=== PATIENT | female | born 1955 | race Caucasian/White ===

== ENCOUNTER 2016-10-27 11:21 | Day surgery (SDC) | payer OTHER ==
[2016-10-20 14:47] VITALS: BMI 33.8
--- NOTE | 2016-10-27 07:42 | P.GSHP ---
History of Present Illness H&P Date: 10/26/16 CHIEF COMPLAINT: Ventral hernia. HISTORY OF PRESENT ILLNESS: The patient is a 61-year-old female who presents with a history of swelling along the upper abdomen. Findings were consistent with ventral hernia initial presentation. Now she presents for further evaluation and management. PAST MEDICAL HISTORY: Please see list. PAST SURGICAL HISTORY: Please see list. MEDICATIONS: Please see list. ALLERGIES: Please see list. SOCIAL HISTORY: No illicit drug use FAMILY HISTORY: No reports of Crohn disease or ulcerative colitis. REVIEW OF ORGAN SYSTEMS: CONSTITUTIONAL: No reports of fevers or chills. GI: Denies any blood in stools or constipation. PHYSICAL EXAM: VITAL SIGNS: Stable GENERAL: Well-developed pleasant female in no acute distress. HEENT: No scleral icterus. Extraocular movements grossly intact. Moist buccal mucosa. NECK: Supple without lymphadenopathy. CHEST: Unlabored respirations. Equal bilateral excursions. CARDIOVASCULAR: Regular rate and rhythm. Distal 2+ pulses. ABDOMEN: Soft, nondistended. Palpable defect of the epigastrium. MUSCULOSKELETAL: No clubbing, cyanosis, or edema. ASSESSMENT: 1. Ventral hernia. PLAN: 1. Recommend proceeding with a diagnostic laparoscopy with the ventral hernia repair with mesh. 2. Benefits and risks of surgical intervention was discussed including possibility of open technique. 3. May need overnight observation. 4. DVT prophylaxis. 5. Antibiotic prophylaxis. Past Medical History Past Medical History: GERD/Reflux Additional Past Medical History / Comment(s): hernia History of Any Multi-Drug Resistant Organisms: None Reported Additional Past Surgical History / Comment(s): LASER SX ON VOCAL CORDS. EGD Past Anesthesia/Blood Transfusion Reactions: No Reported Reaction Smoking Status: Former smoker - Past Family History Brother(s) Family Medical History: Cancer Medications and Allergies Home Medications Medication Instructions Recorded Confirmed Type Ibuprofen [Motrin] 800 mg PO Q6H PRN 10/20/16 10/20/16 History Omeprazole 20 mg PO DAILY 10/20/16 10/20/16 History Allergies Allergy/AdvReac Type Severity Reaction Status Date / Time bee venom protein (honey bee) Allergy Anaphylaxis Verified 10/20/16 14:42
[~2016-10-27 11:21] MED LIST: ACETAMINOPHEN IV (For NPO) 1,000 MG in EMPTY BAG 1 BAG IVPB ONE; DEXAMETHASONE SOD PHOSPHATE 10 MG/ML 1 ML VIAL IV ONE; HEPARIN SODIUM,PORCINE 5,000 UNIT/ML 1 ML VIAL SQ ONE; LACTATED RINGERS 1,000 ML IV SCH; ONDANSETRON 4 MG/2 ML VIAL IVP ONE; ceFAZolin 2 GM in SODIUM CHLORIDE 0.9% 100 ML IVPB ONE
[2016-10-27] MEDS ORDERED: LIDOCAINE 1% 20 ML VIAL (10MG/ML) FOR IV START INTRADERMA ONE (12:23)
[2016-10-27] MEDS ORDERED: MIDAZOLAM 2 MG/2 ML VIAL ONE (13:56)
[2016-10-27] MEDS ORDERED: GLYCOPYRROLATE 0.2 MG/ML 2 ML VIAL ONE (13:56)
[2016-10-27] MEDS ORDERED: ROCURONIUM BROMIDE 10 MG/ML 10 ML VIAL IV ONE (13:56)
[2016-10-27] MEDS ORDERED: NEOSTIGMINE 1 MG/ML 10 ML VIAL ONE (13:56)
[2016-10-27] MEDS ORDERED: PROPOFOL 10 MG/ML 20 ML VIAL IV ONE (13:56)
[2016-10-27] MEDS ORDERED: fentaNYL (PF) 50 MCG/ML 2 ML AMP ONE (13:56)
[2016-10-27] MEDS ORDERED: LIDOCAINE 1% INJ 10MG/ML (20 ML MDV) ONE (13:56)
[2016-10-27] MEDS ORDERED: SUCCINYLCHOLINE CHLORIDE 100 MG/5 ML SYR IV ONE (13:56)
[2016-10-27] MEDS ORDERED: LACTATED RINGERS 1,000 ML IV ONE ×2 (14:00→14:44)
[2016-10-27] MEDS ORDERED: BUPIVACAINE-EPI 0.5%-1:200,000 10 ML VIAL SQ ONE ×2 (14:19→14:21)
--- NOTE | 2016-10-27 14:47 | P.OP ---
Date of Procedure: 10/27/16 Description of Procedure: SURGEON: TAB BARKSDALE MD PREOPERATIVE DIAGNOSIS: 1. Ventral hernia, initial. 2. History of tobacco use. 3. Gastroesophageal reflux disease. 4. Obesity, BMI 33.8. POSTOPERATIVE DIAGNOSIS: 1. Ventral hernia, initial. 2. History of tobacco use. 3. Gastroesophageal reflux disease. 4. Obesity, BMI 33.8. 5. Incarcerated umbilical ventral hernia, 2 cm. OPERATION: 1. Laparoscopic reduction and repair of incarcerated initial ventral hernia with Bard Ventralight ST mesh 11.4 cm. ANESTHESIA: General with local anesthetic. ESTIMATED BLOOD LOSS: 2 mL SPECIMENS REMOVED: None. COMPLICATIONS: None. INDICATIONS: The patient is a 61-year-old female who presents with symptomatic bulge along the umbilicus including pain. Clinical exam is consistent with a ventral hernia. She was encouraged to discontinue tobacco use asked to optimize her perioperative and postsurgical care. Benefits and risks were described including placement of mesh. Informed consent was obtained. DESCRIPTION: Patient was brought into the operating room, laid in supine position. After general induction, abdomen was prepped and draped in standard sterile fashion, including placement of Ioban draping. Prior to incision, a timeout protocol was performed with the surgical team, confirming the patient's name, procedure to be performed, including preoperative medications, for which she received IV antibiotics. A 5 mm transverse incision was made along the left upper abdomen. A 0-degree 5 mm laparoscopic trocar entry was entered into peritoneal cavity. Diagnostic laparoscopy demonstrated no entry to bowel, viscera or mesentery. No bilateral inguinal hernias were found. The liver surface was unremarkable. The small bowel was unremarkable. Two other 5 mm trocars were placed along the left lateral abdominal wall under direct visualization. Attention was then brought to the abdominal wall, whereby along the umbilicus a defect of approximately 2 cm was encountered with incarcerated fat. The abdominal fat was cleaned from the abdominal wall for application of a Ventralight mesh. The 5 mm port along the left upper quadrant was exchanged for a 10 mm port. A peritoneal block of local anesthetic was placed along the epigastrium and along the hernia to minimize postoperative pain. Next, the Ventralight ST mesh was placed into the abdominal cavity after placing a loop of 1-0 Prolene at the epicenter. A Dangelo-Lee was used to draw the loop of the central portion of the mesh through the skin. On the periphery, Sorbafix was placed including along the body of the mesh. All instruments and pneumoperitoneum were removed from the abdominal cavity. Incisions were reapproximated using 4-0 Monocryl in an interrupted fashion. Dermabond was applied to the skin. A sterile cotton ball including Tegaderm was placed over the umbilicus. Once dried, an abdominal binder was placed. At the end of the procedure, needle, sponge and instrument count was verified correct by the surgical attendant. The patient had tolerated the procedure well and was awakened from anesthesia without sequelae. FINDINGS: 1. A 2-cm incarcerated ventral hernia at the epigastrium. Plan - Discharge Summary New Discharge Prescriptions: No Action Omeprazole 20 mg PO DAILY Ibuprofen [Motrin] 800 mg PO Q6H PRN PRN Reason: Pain Discharge Medication List Ibuprofen [Motrin] 800 mg PO Q6H PRN 10/20/16 [History] Omeprazole 20 mg PO DAILY 10/20/16 [History]
[2016-10-27] MEDS ORDERED: HYDROcodone/APAP 5-325MG 1 EACH TAB PO PRN (14:51)
[2016-10-27] MEDS ORDERED: NALOXONE 0.4 MG/ML 1 ML VIAL IV PRN (14:51)
[2016-10-27] MEDS: HYDROmorphone 1 MG/ML 1 ML SYRINGE IVP PRN ×3 (14:55→15:46)
[2016-10-27 15:04] VITALS: RESP 16; TEMP 96.8
[2016-10-27] MEDS ORDERED: ONDANSETRON 4 MG/2 ML VIAL IVP ONE (15:46)
[2016-10-27] MEDS ORDERED: HYDROcodone/APAP 5-325MG 1 EACH TAB PO ONE (16:30)
[2016-10-27 17:22] VITALS: BP 109/67; PULSE 83
== END 2016-10-27 17:57 | disposition home or self-care (01) ==
LOC: OR 11:21
PROVIDERS: ATTEND Surgery Plastic and Reconstructive Surgery
DX: K42.0 Umbilical hernia with obstruction, without gangrene (principal); K21.9 Gastro-esophageal reflux disease without esophagitis; E66.9 Obesity, unspecified; Z68.33 Body mass index [BMI] 33.0-33.9, adult; Z87.891 Personal history of nicotine dependence; Z79.899 Other long term (current) drug therapy; Z91.030 Bee allergy status
CPT/HCPCS: 88302; 49653; C1781 ×2; J2250; J1644; J1100; J2710; J0690; J2405; J2001; J3010; J1170; J0131; J0330; J2704

== ENCOUNTER 2017-08-07 09:26 | Inpatient (IN) | payer OTHER ==
[2017-07-28 13:38] VITALS: BMI 34.0
--- NOTE | 2017-08-07 07:33 | P.GSHP ---
History of Present Illness H&P Date: 08/07/17 CHIEF COMPLAINT: Paraesophageal hiatal hernia with gastroesophageal reflux disease. HISTORY OF PRESENT ILLNESS: The patient is a 62-year-old female who presents with paraesophageal hiatal hernia. She has completed an esophageal manometry including upper endoscopy workup. Now she presents for surgical intervention. PAST MEDICAL HISTORY: Please see list. PAST SURGICAL HISTORY: Please see list. MEDICATIONS: Please see list. ALLERGIES: Please see list. SOCIAL HISTORY: No illicit drug use FAMILY HISTORY: No reports of Crohn disease or ulcerative colitis. REVIEW OF ORGAN SYSTEMS: CONSTITUTIONAL: No reports of fevers or chills. GI: Denies any blood in stools or constipation. PHYSICAL EXAM: VITAL SIGNS: Stable GENERAL: Well-developed pleasant and in no acute distress. HEENT: No scleral icterus. Extraocular movements grossly intact. Moist buccal mucosa. NECK: Supple without lymphadenopathy. CHEST: Unlabored respirations. Equal bilateral excursions. CARDIOVASCULAR: Regular rate and rhythm. Distal 2+ pulses. ABDOMEN: Soft, nondistended. No peritoneal signs. MUSCULOSKELETAL: No clubbing, cyanosis, or edema. SKIN: Well-perfused. Good skin turgor. MANOMETRY: Shows no evidence of achalasia or scleroderma. ASSESSMENT: 1. Diaphragmatic paraesophageal hiatal hernia with severe gastroesophageal reflux disease. PLAN: 1. Recommend proceeding with a robotic paraesophageal hiatal hernia with possible mesh. 2. Benefits and risks of surgical intervention was discussed including possibility of open technique. 3. Inpatient hospitalization recommended of 2 nights 4. DVT prophylaxis. 5. Antibiotic prophylaxis. 6. She has also completed a very low caloric high-protein diet to address underlying hepatomegaly. Past Medical History Past Medical History: GERD/Reflux, Osteoarthritis (OA) Additional Past Medical History / Comment(s): hiatal hernia, History of Any Multi-Drug Resistant Organisms: None Reported Past Surgical History: Breast Surgery, Hernia Repair Additional Past Surgical History / Comment(s): umbilical hernia repair, laser surgery to remove polyps from throat, rt breast biopsy, Past Anesthesia/Blood Transfusion Reactions: No Reported Reaction Smoking Status: Former smoker - Past Family History Brother(s) Family Medical History: Cancer Medications and Allergies Home Medications Medication Instructions Recorded Confirmed Type Meloxicam 7.5 mg PO DAILY 07/28/17 07/28/17 History Omeprazole [PriLOSEC] 40 mg PO QAM 07/28/17 07/28/17 History Ranitidine HCl [Zantac] 150 mg PO HS 07/28/17 07/28/17 History Allergies Allergy/AdvReac Type Severity Reaction Status Date / Time bee venom protein (honey bee) Allergy Anaphylaxis Verified 07/28/17 13:26
[~2017-08-07 09:26] MED LIST changes: +HYDROmorphone 0.5 MG/0.5 ML SYRINGE IVP PRN; +SCOPOLAMINE 1.5MG/72HR PATCH TRANSDERM STA; -ceFAZolin 2 GM in SODIUM CHLORIDE 0.9% 100 ML IVPB ONE; +ceFAZolin IN SWFI 2 GM/20 ML SYRINGE IVP ONE
[2017-08-07] MEDS ORDERED: LIDOCAINE 1% 20 ML VIAL (10MG/ML) FOR IV START INTRADERMA ONE (10:08)
[2017-08-07 10:32] LABS: Basophils % (A) 0 %; Eosinophils # (A) 0.1 k/uL (0-0.7); Eosinophils % (A) 2 %; HCT 38.8 % (34.0-46.0); HGB 12.8 gm/dL (11.4-16.0); Lymphocytes # (A) 2.5 k/uL (1.0-4.8); Lymphocytes % (A) 37 %; MCH 28.7 pg (25.0-35.0); MCHC 33.1 g/dL (31.0-37.0); MCV 86.7 fL (80.0-100.0); Mean Platelet Volume 7.3; Monocytes # (A) 0.3 k/uL (0-1.0); Monocytes % (A) 5 %; Neutrophils # (A) 3.7 k/uL (1.3-7.7); Neutrophils % (A) 55 %; Platelet Count 262 k/uL (150-450); RBC 4.47 m/uL (3.80-5.40); RDW 13.6 % (11.5-15.5); WBC 6.8 k/uL (3.8-10.6)
[2017-08-07] MEDS ORDERED: LABETALOL 5 MG/ML VIAL MDV ONE (10:49)
[2017-08-07] MEDS ORDERED: SUCCINYLCHOLINE CHLORIDE 100 MG/5 ML SYR IV ONE (10:49)
[2017-08-07] MEDS ORDERED: ROCURONIUM BROMIDE 10 MG/ML 10 ML VIAL IV ONE (10:49)
[2017-08-07] MEDS ORDERED: GLYCOPYRROLATE 0.2 MG/ML 2 ML VIAL ONE (10:49)
[2017-08-07] MEDS ORDERED: fentaNYL (PF) 50 MCG/ML 2 ML AMP ONE (10:49)
[2017-08-07] MEDS ORDERED: PROPOFOL 10 MG/ML 20 ML VIAL IV ONE (10:49)
[2017-08-07] MEDS ORDERED: MIDAZOLAM 2 MG/2 ML VIAL ONE (10:49)
[2017-08-07] MEDS ORDERED: LIDOCAINE 1% INJ 10MG/ML (20 ML MDV) ONE (10:49)
[2017-08-07] MEDS ORDERED: NEOSTIGMINE 1 MG/ML 10 ML VIAL ONE (10:49)
[2017-08-07] MEDS ORDERED: BUPIVACAINE (PF) 0.5% 30 ML VIAL SQ ONE (11:15)
[2017-08-07] MEDS ORDERED: ONDANSETRON 4 MG/2 ML VIAL IVP PRN (13:28)
[2017-08-07] MEDS ORDERED: NALOXONE 0.4 MG/ML 1 ML VIAL IV PRN (13:28)
[2017-08-07] MEDS ORDERED: HYDROmorphone 0.5 MG/0.5 ML SYRINGE IVP PRN (13:31)
--- NOTE | 2017-08-07 13:37 | P.PCN ---
Date of Procedure: 08/07/17 Preoperative Diagnosis: Diaphragmatic hiatal hernia, gastroesophageal reflux disease, epigastric abdominal pain, morbid obesity due to excess calories Postoperative Diagnosis: Same, left posterior lobe mass 4 x 3 cm against hiatus Procedure(s) Performed: 1. Robotic-assisted paraesophageal hiatal hernia incarcerated 3 x 2 cm without mesh 2. Excision of left posterior liver mass 4 x 3 cm 3. Intra-op EGD Anesthesia: GETA, local Surgeon: Lovely Richards Estimated Blood Loss (ml): 10 Pathology: other (Left posterior hepatic lobe mass) Condition: stable Disposition: floor Operative Findings: 1. Nodular cystic 4 x 3 cm left posterior liver mass completely excised causing compression against diaphragmatic hiatus requiring excision to perform patient's procedure. 2. Hiatal defect incarcerated 3 x 2 cm 3. Hill grade 1 lower esophageal valve after completion of procedure 4. Console time 82 minutes
[2017-08-07] MEDS ORDERED: LACTATED RINGERS 1,000 ML IV ONE ×2 (14:11)
[2017-08-07] MEDS: D5-0.45% NACL WITH KCL 20MEQ/L 1,000 ML IV SCH ×2 (15:11→16:33)
[2017-08-07] MEDS: METOCLOPRAMIDE 5 MG/ML 2 ML VIAL IVP SCH ×2 (15:11→20:40)
[2017-08-07 15:49] LABS: Anion Gap 9 mmol/L; Blood Urea Nitrogen 15 mg/dL (7-17); Calcium 9.3 mg/dL (8.4-10.2); Carbon Dioxide 27 mmol/L (22-30); Chloride 106 mmol/L (98-107); Glucose 98 mg/dL (74-99); Potassium 4.7 mmol/L (3.5-5.1); Sodium 142 mmol/L (137-145)
--- NOTE | 2017-08-07 16:10 | FL ---
EXAMINATION TYPE: FL esophagus cervic/pharynx DATE OF EXAM: 08/07/2017 LIMITED UGI-ESOPHAGRAM: CLINICAL HISTORY: History of GERD and hernia with Hany fundoplication surgery earlier today. TECHNIQUE: Limited esophagram is performed utilizing 50 oz of Isovue-370. A total of 20 seconds of f luoroscopic time was utilized during procedure. Spot images are saved during procedure. FINDINGS: The patient swallowed contrast without difficulty or delay. Esophageal peristalsis and mo tility are within normal limits. There is good flow of contrast along the diaphragmatic hiatus into t he stomach, there is no evidence of contrast extravasation to suggest leak. No persistent hiatal armond ia is seen. Patient remains asymptomatic. IMPRESSION: No evidence of leak or significant obstruction status post Hany fundoplication surgery earlier today.
[2017-08-07] MEDS: ERYTHROMYCIN 5 MG/GM OPHTH OINT 3.5 GM TUBE RIGHT EYE SCH ×2 (16:33→23:49)
[2017-08-07] MEDS: KETOROLAC 30 MG/ML 1 ML VIAL IVP SCH ×2 (16:33→21:42)
--- NOTE | 2017-08-07 16:54 | CONS ---
CONSULTATION DATE OF SERVICE: 08/07/2017 TIME: 4:11 HISTORY: This is a 62-year-old female who presented to the hospital with a hiatal hernia. She has recently undergone hiatal hernia repair and since the surgery complained of severe pain in her right eye. She also complains of blurred vision in the eye. EXAMINATION: Visual acuity measured 2400 OD. The pupils were equal and reactive to light. On penlight exam, the lids were normal. The conjunctivae exhibited 2+ injection on the right side. There was an obvious epithelial corneal defect on the right side as well. The anterior chambers were well formed. Lenses were well centered. IMPRESSION: Corneal abrasion. Treatment will consist of erythromycin ointment to the cornea along with a pressure patch overnight to help alleviate symptoms. In addition, the pressure patch should be removed tomorrow morning and she should remain on erythromycin ointment one-quarter inch to the affected eye q.i.d. until symptoms have resolved. I would be happy to follow up with her upon discharge from the hospital. MMERICK / NEETU: [id number] /
[2017-08-07] MEDS ORDERED: KETOROLAC 30 MG/ML 1 ML VIAL IM SCH (18:00)
[2017-08-07] MEDS: ceFAZolin IN SWFI 2 GM/20 ML SYRINGE IVP SCH (18:04)
[2017-08-07 19:55] VITALS: RESP 18
[2017-08-08] MEDS: METOCLOPRAMIDE 5 MG/ML 2 ML VIAL IVP SCH ×2 (02:51→08:01)
[2017-08-08] MEDS: ceFAZolin IN SWFI 2 GM/20 ML SYRINGE IVP SCH (02:52)
[2017-08-08] MEDS: KETOROLAC 30 MG/ML 1 ML VIAL IVP SCH (06:11)
[2017-08-08] MEDS: D5-0.45% NACL WITH KCL 20MEQ/L 1,000 ML IV SCH (06:12)
[2017-08-08 07:58] VITALS: BP 135/80; PULSE 72; TEMP 97.8
[2017-08-08] MEDS ORDERED: ENOXAPARIN 40 MG/0.4 ML SYRINGE SQ SCH (09:00)
[2017-08-08] MEDS ORDERED: PANTOPRAZOLE 40 MG/10 ML VIAL IV SCH (09:00)
--- NOTE | 2017-08-12 07:18 | CDI ---
Documentation Clarification Form Date: 08/12/2017 12:00:00 AM From: ROXANNA Al Phone: If you have question, contact Alee Rosario Turn Machine Operator at M-F 8:30 am to 6pm Admit Date: 08/07/2017 9:26:00 AM Patient Name: Onofre Marte Visit Number: [id number] Discharge Date: 08/08/17 ATTENTION: The Clinical Documentation Specialists (CDI) and [facility] Coding Staff appreciate your assistance in clarifying documentation. Please respond to the clarification below the line at the bottom and electronically sign. The CDI & [facility] Coding staff will review the response and follow-up if needed. Please note: Queries are made part of the Legal Health Record. If you have any questions, please contact the author of this message via ITS. Dr. Lovely Richards Postoperative findings indicate a left posterior liver lobe mass 4x3 cm was found against the hiatus. The pathology report is now available for viewing and the final diagnosis of the pathology report states: Hemagnioma In your professional opinion, do you agree with the pathology report specifying the liver mass as hemangioma? Yes No Other (please specify) Unable to determine Thank you for your time. Mass described per final pathology of pathologist! LEEROY 08/13/17 @ 15:39 MTDD
--- NOTE | 2017-08-13 14:41 | P.OP ---
Date of Procedure: 08/07/17 Description of Procedure: Date of Procedure: 08/07/17 DESCRIPTION OF PROCEDURE(S): SURGEON: TAB BARKSDALE MD PREOPERATIVE DIAGNOSES: 1. Morbid obesity due to excess calories. 2. Body mass index of 34.0 3. Gastroesophageal reflux disease. 4. Paraesophageal hiatal hernia, midline. 5. Osteoarthritis bilateral knees 6. Epigastric abdominal pain POSTOPERATIVE DIAGNOSES: 1. Morbid obesity due to excess calories. 2. Body mass index of 34.0 3. Gastroesophageal reflux disease. 4. Paraesophageal hiatal hernia, midline. 5. Osteoarthritis bilateral knees 6. Hepatic tumor involving left posterior lobe mass/caudate lobe 4 x 3 cm against hiatus, segment I OPERATION: 1. Robotic-assisted da Soren Xi laparoscopic reduction and repair of incarcerated paraesophageal hiatal hernia 3 x 2 cm without mesh 2. Resection of left posterior lobe protuding liver mass 4 x 3 cm 3. Intraoperative esophagogastroduodenoscopy ANESTHESIA: General with local anesthetic. ESTIMATED BLOOD LOSS: 10 mL SPECIMENS REMOVED: (Left posterior hepatic lobe mass) COMPLICATIONS: None. FINDINGS: 1. Nodular cystic 4 x 3 cm left posterior liver mass completely excised causing compression against diaphragmatic hiatus requiring excision to perform patient's procedure. 2. Hiatal defect incarcerated 3 x 2 cm 3. Hill grade 1 lower esophageal valve after completion of procedure 4. Console time 82 minutes INDICATIONS: The patient is a 62-year-old female who presents with Epigastric abdominal pain, gastroesophageal reflux disease poorly controlled despite medications, and a symptomatic diaphragmatic hiatal hernia. Preoperative workup including upper endoscopy demonstrated a Hill grade 4 lower esophageal valve. She completed an esophageal manometry. Given the severity of her symptoms, particularly of her symptomatic diaphragmatic hiatal hernia, she had elected for surgical intervention. Benefits and risks including bleeding, infection, recurrence, dysphagia, injury to the lung, need for further surgery was described at length. Informed consent was obtained. DESCRIPTION: The patient was brought into the operating room and placed in supine position. Preoperatively she had received Lovenox subcutaneously for DVT prophylaxis. After general induction, the abdomen was prepped and draped in standard sterile fashion. The patient had previously voided prior to coming to the operating room. Ioban draping was placed along the abdomen. A timeout protocol was confirmed with the surgical team, for which the patient's name, procedure to be performed including DVT prophylaxis with bilateral SCDs, and preoperative antibiotics were also confirmed. A robotic da Soren Xi system was prepped and primed. At 15 cm from the xiphoid to just below the umbilicus, proposed port sites were marked with indelible marker along the left axillary line, left mid-clavicular line with each ports were marked 10 cm from each other. A 5 mm 0 degrees laparoscopic trocar entry was performed along the left upper quadrant. The abdomen was insufflated to 15 mmHg pressure she tolerated well. Diagnostic laparoscopy demonstrated no injury to bowel, viscera, or mesentery. The liver surface was unremarkable. No injury had occurred to the small bowel or viscera. Along the hiatus, a protruding nodular cystic liver mass 4 x 3 cm was found obscuring the anterior hiatus and causing compression along the GE junction. To proceed with the case, the mass was excised in toto using electro- Bovie cautery and scissor with excellent hemostasis obtained. Next, one 8 mm robotic port was placed along the right upper abdomen. An 8-mm port was were placed along the left mid abdomen. The camera 12-mm port extended length was maintained along the epigastrium via the hernia defect. Another 8 mm port was placed along the left upper abdominal wall after exchanging the 5 mm port. Please note that the ports were placed at least 20 cm away from the target anatomy. Care was taken to check that each robotic arm were safely away from collision with the bed or the patient. At the epigastrium, a median sized Raisa liver retractor was placed under direct visualization with the Iron Finishing Supervisor placed under the right shoulder of the patient. The patient was repositioned in reverse Trendelenburg position and 14 after lowering the bed. The robot was docked above the head of the patient. Using a grasper for arm 3, a grasper for arm 2, including hook cautery for arm 1 , the robotic system was docked and primed as described. Instruments were interchanged by the assistant infant toddler teacher . I had sat at the console. The gastrohepatic ligament was cleaved using a vessel sealer. Next, the phrenoesophageal ligament was mobilized and the distal esophagus was mobilized circumferentially without injury to the bilateral vagi nerves. The left and right crura was identified. A midline hiatal hernia and sac was found incarcerated into the mediastinum. Mobilization of the distal to mid esophagus into the mediastinum was performed without injury to the vagotomy nerves. Circumferentially, the hernia sac was excised and brought into the peritoneal cavity. Care was taken to avoid any gastrotomy to the incarcerated upper pole of the stomach. The measured defect was consistent with at least 4 cm axial length and 3 cm width. After extensive dissection, the distal esophagus of at least 3 cm was brought into the abdominal cavity. Once the hiatus and crura was dissected, 2-0 VLOC suture was placed initially with a [id number]-hv-emadu suture to reapproximate the diaphragmatic hiatus posteriorly. Additional sutures using 2-0 Surgidac was used as a [id number] as well as interrupted simple sutures to completely close the hiatus along the posterior aspect. The robot was undocked from the patient. I went to the head of the bed to perform intraoperative esophagogastroduodenoscopy. An Olympus gastroscope was passed through posterior oropharynx, where the GE junction was found distal to the diaphragmatic hiatus. The intra-abdominal esophageal length obtained during the case was over 2 cm. The stomach was entered. Retroflexion of the scope confirmed a Hill grade 1 lower esophageal valve. The stomach had been desufflated. No evidence of leaks were found either of the mucosal defects of the esophagus or stomach. This concluded the endoscopic portion of the case. I re-scrubbed into the case. All instruments and pneumoperitoneum were evacuated from the abdominal cavity. Incisions were reapproximated using 4-0 Monocryl in an interrupted subcuticular fashion. Liquid glue was applied to the skin. Local anesthetic was infiltrated in all wounds for postop analgesia. Multiple intra-abdominal films were obtained. At the end of the procedure, needle, sponge, and instrument count was verified correct by the surgical lead. The patient had tolerated the procedure well and was taken to the postanesthesia unit in stable condition. Intraoperative films were reviewed with the patient's family who was pleased with the level of care.
--- NOTE | 2017-08-13 15:58 | P.DS ---
Providers Date of admission: 08/07/17 09:26 Expected date of discharge: 08/08/17 Attending physician: Lovely iRchards Consults: 08/07/17 13:55 Consult Physician Urgent Consulting Provider: Franklyn Saucedo Consult Reason/Comments: Corneal abrasion Do you want consulting provider notified?: Already Contacted Primary care physician: Stated None Hospital Course: POSTOPERATIVE DIAGNOSES: 1. Morbid obesity due to excess calories. 2. Body mass index of 34.0 3. Gastroesophageal reflux disease. 4. Paraesophageal hiatal hernia, midline. 5. Osteoarthritis bilateral knees 6. Hepatic tumor involving left posterior lobe mass/caudate lobe 4 x 3 cm against hiatus, segment I COURSE: The patient is a 62-year-old female who presents with Epigastric abdominal pain, gastroesophageal reflux disease poorly controlled despite medications, and a symptomatic diaphragmatic hiatal hernia. Preoperative workup including upper endoscopy demonstrated a Hill grade 4 lower esophageal valve. She completed an esophageal manometry. Postprocedure she was tolerating diet. Her pain was well-controlled. Per request of anesthesia, ophthalmology was consulted for corneal abrasion. Prior to discharge she was hemodynamically stable. Pertinent Studies: Esophagram without leak or obstruction Procedures: OPERATION: 1. Robotic-assisted da Soren Xi laparoscopic reduction and repair of incarcerated paraesophageal hiatal hernia 3 x 2 cm without mesh 2. Resection of left posterior lobe protuding liver mass 4 x 3 cm 3. Intraoperative esophagogastroduodenoscopy ANESTHESIA: General with local anesthetic. ESTIMATED BLOOD LOSS: 10 mL SPECIMENS REMOVED: (Left posterior hepatic lobe mass) COMPLICATIONS: None. FINDINGS: 1. Nodular cystic 4 x 3 cm left posterior liver mass completely excised causing compression against diaphragmatic hiatus requiring excision to perform patient's procedure. 2. Hiatal defect incarcerated 3 x 2 cm 3. Hill grade 1 lower esophageal valve after completion of procedure 4. Console time 82 minutes Patient Condition at Discharge: Stable Plan - Discharge Summary Discharge Rx Participant: No New Discharge Prescriptions: New Erythromycin Ophth Oint [Romycin Ophth Oint] 1 applic RIGHT EYE Q8HR #1 tube Bisacodyl [Dulcolax] 5 mg PO DAILY PRN #10 tablet. PRN Reason: Constipation Ondansetron Odt [Zofran Odt] 4 mg PO Q8HR PRN #9 tab PRN Reason: Nausea Simethicone 40 mg/0.6 ml Drops [Mylicon Drops] 40 mg PO PCHS PRN #30 ml PRN Reason: Gas Continue Meloxicam 7.5 mg PO DAILY Discontinued Ranitidine HCl [Zantac] 150 mg PO HS Omeprazole [PriLOSEC] 40 mg PO QAM Discharge Medication List Meloxicam 7.5 mg PO DAILY 07/28/17 [History] Bisacodyl [Dulcolax] 5 mg PO DAILY PRN #10 tablet. 08/08/17 [Rx] Erythromycin Ophth Oint [Romycin Ophth Oint] 1 applic RIGHT EYE Q8HR #1 tube [Rx] Ondansetron Odt [Zofran Odt] 4 mg PO Q8HR PRN #9 tab 08/08/17 [Rx] Simethicone 40 mg/0.6 ml Drops [Mylicon Drops] 40 mg PO PCHS PRN #30 ml [Rx] Follow up Appointment(s)/Referral(s): Lovely Richards MD [STAFF PHYSICIAN] - 08/11/17 2:00 pm (Please call to confirm a time) Patient Instructions/Handouts: Hiatal Hernia (GEN), Laparoscopic Hiatal Hernia Repair (DC) Activity/Diet/Wound Care/Special Instructions: No lifting over 4 pounds in 4 weeks. No straws or carbonated beverages. Liquid diet only. Please see form given by your surgeon for review. Continue protein shakes for your strength. May shower. NO bath tub soaks. Recheck with opthamologist sometime next week, sooner if worsening r eye symptoms. Discharge Disposition: HOME SELF-CARE
== END 2017-08-08 10:20 | disposition home or self-care (01) | DRG 328 ==
LOC: 2ORMAIN 09:26 → 6PED 13:39
PROVIDERS: ADMIT Surgery Plastic and Reconstructive Surgery; ATTEND Surgery Plastic and Reconstructive Surgery
PROC: 0FB24ZX Excision of Left Lobe Liver, Percutaneous Endoscopic Approach, Diagnostic (ICD-10-PCS; 2017-08-07)
PROC: 8E0W4CZ Robotic Assisted Procedure of Trunk Region, Percutaneous Endoscopic Approach (ICD-10-PCS; 2017-08-07)
PROC: 0DJ08ZZ Inspection of Upper Intestinal Tract, Via Natural or Artificial Opening Endoscopic (ICD-10-PCS; 2017-08-07)
PROC: 0BQT4ZZ Repair Diaphragm, Percutaneous Endoscopic Approach (ICD-10-PCS; principal; 2017-08-07 09:30)
DX: K44.0 Diaphragmatic hernia with obstruction, without gangrene (principal); S05.01XA Injury of conjunctiva and corneal abrasion without foreign body, right eye, initial encounter; E66.01 Morbid (severe) obesity due to excess calories; K21.9 Gastro-esophageal reflux disease without esophagitis; D18.03 Hemangioma of intra-abdominal structures; Z68.34 Body mass index [BMI] 34.0-34.9, adult; K44.9 Diaphragmatic hernia without obstruction or gangrene; M17.0 Bilateral primary osteoarthritis of knee
CPT/HCPCS: 74210; 80048; 83735; 85025; 86850; 86900; 86901; 88307